=== PATIENT | female | born 1975 | race Caucasian/White ===

== ENCOUNTER → 2017-06-22 | Outpatient (CLI) | payer OTHER ==
[~2017-06-22] MED LIST: CITA10TA4 PO
--- NOTE | 2017-06-22 16:20 | DIREP ---
PROCEDURE:MAMMO BILATERAL SCREENING TECHNIQUE:MLO and CC digital images of each breast are provided. Computer Assisted Detection (CAD) was utilized. COMPARISON:[facility], MAMMO BILATERAL SCREENING, 05/26/2015, 02:41 PM. , DIGITAL MAMMO SCREENING, 05/22/2014, 02:59 PM. , DIGITAL MAMMO SCREENING, 02/14/2013, 03:55 PM. [facility], MAMMOGRAPHY PRIORS, 07/06/2010, 04:48 PM. [facility], MAMMOGRAPHY PRIORS, 07/02/2009, 04:45 PM. [facility], MAMMOGRAPHY PRIORS, 06/10/2008, 04:43 PM. [facility], MAMMO BILATERAL SCREENING WITH CAD, 06/16/2016, 11:46 AM. INDICATIONS:SCREENING MAMMO BREAST COMPOSITION:There are scattered areas of fibroglandular density FINDINGS:There are no suspicious masses, clustered calcifications or architectural distortions visible to suggest malignancy. CONCLUSION:There is no mammographic evidence of malignancy. There is no significant change as compared with the previous examination(s). RECOMMENDATIONS:Routine age-appropriate screening. OVERALL FINAL ASSESSMENT:BI-RADS 1: Negative Note: This facility participates in a mammography screening patient reminder system. Dictated by: Jose Berry M.D. on 06/22/2017 at 04:17 PM
== END | disposition home or self-care (01) ==
LOC: RAD 12:38
PROVIDERS: ATTEND Surgery
DX: Z12.31 Encounter for screening mammogram for malignant neoplasm of breast (principal)
CPT/HCPCS: G0202; 77067

== ENCOUNTER 2018-07-30 14:27 | Emergency (ER) | payer BC, OTHER ==
[~2018-07-30] VITALS: Ht 170.2 cm; Wt 86.2 kg
--- NOTE | 2018-07-30 14:30 | NUR ---
ARRIVAL PATIENT TO ROOM 4 AMBULATORY. PATIENT IN PUT ON MONITOR AND TRIAGED. ASSESSMENT COMPLETED, AWAITING MD LARSON.
--- NOTE | 2018-07-30 14:33 | NUR ---
PATIENT IN ROOM WITH PATIENT. ANSWERING SUBJECTIVE QUESTIONS FOR PATIENT SUCH PAIN LEVEL. THIS NURSE STATES THAT PATIENT WILL HAVE TO ANSWER THOSE QUESTIONS. PATIENT STATES "HER EAR JUST FUCKING HURTS BAD, ABOUT A 6." PATIENT UP TO PACE AROUND ROOM AND STATES THAT THEY BOTH DRINK HEAVILY. PATIENT STATES THAT SHE HAS AN APPOINTMENT WITH AN ENT ON TUESDAY AND SHE'S TAKEN SEVERAL DIFFERENT ROUNDS OF ANTIBIOTICS AND NOTHING HAS HELPED. HER STATES, "SO YOU CAN FIX HER TODAY." THIS NURSE STATES THAT WE CAN HELP, BUT NOT FIX AND THE PATIENT WILL NEED TO KEEP HER APPOINTMENT WITH THE ENT. 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 STATES, "I GUESS YOU WERE RIGHT, THEY CAN'T DO ANYTHING HERE, I'LL CALL DR. TILLMAN, AND HE CAN FIX IT. YOU DON'T BELIEVE ME? I'LL CALL HIM RIGHT NOW." THIS NURSE STATES, "SIR, I UNDERSTAND YOUR FRUSTRATION, HOWEVER, THE DOCTOR IN THE ER IS THE ONE IN CHARGE OF PATIENT CARE, AND THE ENT APPOINTMENT IS PIVITOL IN FINDING ANY FURTHER UNDERLYING ISSUES." PATIENT REMAINS DISGRUNTLED AND AGITATED AT THIS TIME. NURSE BACK TO NURSES STATION TO REPORT TO EDP ON PATIENT.
[2018-07-30 14:46] VITALS: BP 143/105
--- NOTE | 2018-07-30 15:29 | ER.PDOC ---
General Chief Complaint: Earache Stated Complaint: POSSIBLE EAR INFECTION Time seen by MD: 16:00 Source: patient Exam Limitations: no limitations History of Present Illness Timing/Duration: last week Severity: moderate Location of Pain: (L) Ear Associated Symptoms: dull earache, hearing loss Prior symptoms/Treatment: Similar symptoms previous, Recenly Seen, Treated by Doctor, Recently Hospitalized Allergies: Coded Allergies: No Known Allergies (Unverified , 05/27/15) Home Meds Reported Medications Citalopram Hydrobromide (CITALOPRAM HBR) 10 Mg Tablet, 1 TAB PO DAILY, #90 TAB 3 Refills 05/27/15 Past Medical History Medical History: no pertinent history Surgical History: , other Social History Smoking: cigarettes, less than 1 pack/day Alcohol Use: heavy Drug Use: none Reviewed Nursing Reviewed: Vital Signs, Abn. Noted All Other Systems: Reviewed and Negative Physical Exam General Appearance: alert, no distress Ears: auricle, external. canal nml TM's: nml Mouth/Throat: lips/gums nml, pharynx nml Nose: nml inspection Head/Neck: atraumatic, neck nml inspection Eyes: eyes nml inspection, PERRL, no nystagmus Resp/CVS: no resp distress, lungs clear, heart sounds nml, reg. rate & rhythm Abdomen: non-tender, no organomegaly Skin Exam: Normal Color, Warm/Dry NEURO/PSYCH: oriented X3, mood/effect nml Results/Orders Results/Orders Administered Medications Medications (Trade) Dose Ordered Sig/Gm Route PRN Reason Start Time Stop Time Status Last Admin Dose Admin Triamcinolone Acetonide (Kenalog-40) 40 mg OT ONCE IM 07/30/18 16:00 07/30/18 16:01 DC 07/30/18 16:04 Course Vitals & review Data Vital Sign - Last 24 Hours 07/30/18 07/30/18 07/30/18 14:30 14:30 14:46 Temp 98.3 98.3 98.3 98.3 98.3 98.3 Pulse 78 82 82 Resp 18 18 18 B/P (MAP) 143/105 (118) Pulse Ox 99 99 O2 Delivery Room Air Room Air Sepsis Infection Criteria Pres: None O2 Sat by Pulse Oximetry: 99 Departure Time of Disposition: 17:00 Disposition: 01 HOME, SELF-CARE Impression: Primary Impression: Chronic serous OM (otitis media) Condition: Stable Referrals: KASSANDRA BREWER [employer] REPRESENTATIVE TEACHER (PCP) PRIMARY CARE PROVIDER Duration or Time Spent with Pa: 2 hrs XIAO CAREY MD Jul 30, 2018 15:29
[2018-07-30] MEDS ORDERED: KENALOG-40 ONE (15:57)
[2018-07-30] MEDS ORDERED: KENALOG-40 IM ONE (16:00)
--- NOTE | 2018-07-30 16:02 | DIREP ---
PROCEDURE:CT SOFT TISSUE NECK W/O COMPARISON:None. INDICATIONS:L EAR FULNESS, PAIN TECHNIQUE:CT images were created without intravenous contrast material. Sagittal and coronal reconstructions are performed. FINDINGS: NASOPHARYNX:Normal. Fossae of Rosenmuller and torus tubarius are symmetric. ORAL CAVITY:Normal. No visible mass. OROPHARYNX:Normal. Faucial and lingual tonsils are symmetric. HYPOPHARYNX:Normal. No mass or other visible lesion. LARYNX:Normal. The vocal cords are symmetric and without mass. SINUSES:Normal. Limited views show no significant fluid or mucosal thickening. NECK GLANDS:Normal. The parotid, submandibular, and thyroid glands are unremarkable. LYMPH NODES:Small nonspecific lymph nodes are noted bilaterally. No lymphadenopathy.. SKULL BASE:Normal. Foramina are symmetric without bony erosion. VASCULATURE:Normal. Limited views are unremarkable. BONES:Normal. No significant osseous lesions. OTHER:Normal. No additional imaging findings. CONCLUSION: 1. No discrete mass or adenopathy is identified in the neck. CT scan of the temporal bones might be of aid in further evaluation for left otic abnormalities. Dictated by: Jhon Woody M.D. on 07/30/2018 at 03:55 PM
[2018-07-30 16:24] VITALS: BP 143/105
== END 2018-07-30 16:20 | disposition home or self-care (01) ==
LOC: ER 14:27
DX: H65.22 Chronic serous otitis media, left ear (principal); F17.210 Nicotine dependence, cigarettes, uncomplicated; Z79.899 Other long term (current) drug therapy
CPT/HCPCS: 70490; 96372; 99285; J3301

== ENCOUNTER → 2021-04-24 | Outpatient (CLI) | payer OTHER | END | disposition home or self-care (01) | LOC: NPLAB 12:13 | PROVIDERS: ATTEND Nurse Practitioner Adult Health | DX: R05.1 Acute cough (principal); J20.9 Acute bronchitis, unspecified; Z20.822 Contact with and (suspected) exposure to COVID-19 | CPT/HCPCS: 87426 ==

== ENCOUNTER → 2021-07-28 | Outpatient (CLI) | payer OTHER ==
[~2021-07-28] MED LIST changes: -CITA10TA4 PO; +CITA10TA5 PO
== END | disposition home or self-care (01) ==
LOC: LAB 12:23
PROVIDERS: ATTEND Nurse Practitioner Adult Health
DX: R06.02 Shortness of breath (principal); J01.40 Acute pansinusitis, unspecified; R09.81 Nasal congestion; Z20.822 Contact with and (suspected) exposure to COVID-19
CPT/HCPCS: 87426